=== PATIENT | female | born 1990 | race Hispanic/Latino ===

== ENCOUNTER 2017-12-18 21:52 | Emergency (ER) | payer MEDICAID, OTHER ==
[~2017-12-18 21:52] MED LIST: IBUP-2070 PO; PREN1TAB89 PO
[2017-12-18 22:44] LABS: APPEARANCE,URINE Cloudy (CLEAR); BILIRUBIN,URINE Negative (NEGATIVE); COLOR,URINE Yellow (YELLOW); GLUCOSE, URINE (UA) Negative (NEGATIVE); KETONES,URINE 15 mg/dL (NEGATIVE); LEUKOCYTE ESTERASE ,URINE Small (NEGATIVE); NITRATE,URINE Negative (NEGATIVE); OCCULT BLOOD,URINE Negative (NEGATIVE); PH,URINE 5.5 (5.0-8.0); PROTEIN,URINE Negative (NEGATIVE); UROBILINOGEN,URINE 0.2 mg/dL (0.2-1.0)
[2017-12-18 22:47] LABS: HCG,QUAL RESULT NEGATIVE (NEGATIVE)
[2017-12-18] MEDS ORDERED: HYOSCYAMINE SULFATE 0.125 MG TAB.SUBL SL ONE (22:54)
[2017-12-18] MEDS ORDERED: SODIUM CHLORIDE 0.9% 1000ML 1,000 ML IV ONE (22:54)
[2017-12-18] MEDS ORDERED: ONDANSETRON HCL 4 MG/2 ML VIAL ONE (22:54)
[2017-12-18 22:56] LABS: RBC,URINE None Seen /HPF (0-1)
[2017-12-18 22:57] LABS: BACTERIA,URINE Rare /HPF (None Seen); MUCUS,URINE Few LPF (None Seen); SQUAMOUS EPITHELIAL CELL,UR Many /HPF (0-2)
[2017-12-18 22:58] LABS: BASOPHILS % (AUTO) 0.2 % (0.0-5.0); EOSINOPHILS % (AUTO) 0.5 % (0.0-8.0); HEMATOCRIT 32.1 % (36-48); LYMPHOCYTES % (AUTO) 4.2 % (21.0-51.0); MEAN CORPUSCULAR HGB CONC 31.8 g/dL (32.0-36.0); MEAN CORPUSCULAR VOLUME 66.1 fL (79-99); MONOCYTES % (AUTO) 3.1 % (3.0-13.0); PLATELET COUNT (AUTO) 375 K/uL (130-400); RED BLOOD CELL COUNT(AUTO) 4.85 MIL/uL (4.00-5.50); WHITE BLOOD COUNT (AUTO) 10.6 K/uL (4.8-10.8)
[2017-12-18 23:09] LABS: CREATININE 0.7 mg/dL (0.5-1.5); POTASSIUM 3.9 mmol/L (3.5-5.1)
[2017-12-18 23:14] LABS: BILIRUBIN,TOTAL 0.7 mg/dL (0.2-1.0); TOTAL PROTEIN, SERUM 8.1 g/dL (6.0-8.3)
[2017-12-18] MEDS ORDERED: ACETAMINOPHEN 325 MG TAB ONE (23:38)
== END 2017-12-19 00:32 | disposition home or self-care (01) ==
LOC: EDH 21:52
DX: E86.0 Dehydration (principal); R50.81 Fever presenting with conditions classified elsewhere; Z88.2 Allergy status to sulfonamides; Z72.0 Tobacco use
CPT/HCPCS: 36415; 80053; 81001; 81025; 85025; 96361; 96374; 99284; J2405; J7030

== ENCOUNTER 2019-08-31 19:31 | Emergency (ER) | payer MEDICAID ==
[2019-08-31 20:26] LABS: RAPID GROUP A STREP NEGATIVE (NEGATIVE)
[2019-08-31] MEDS ORDERED: ALBUTEROL SULFATE 0.083% 2.5 MG/3 ML INH IH ONE (20:57)
[2019-08-31] MEDS ORDERED: SODIUM CHLORIDE 0.9% 1000ML 1,000 ML IV ONE (21:00)
== END 2019-08-31 22:07 | disposition home or self-care (01) ==
LOC: EDH 19:31
DX: B34.9 Viral infection, unspecified (principal); Z88.2 Allergy status to sulfonamides
CPT/HCPCS: 87804 ×2; 87880; 94640; 99283; J7030

== ENCOUNTER 2019-11-09 22:24 | Inpatient (IN) | payer MEDICAID ==
[~2019-11-09] VITALS: Ht 165.1 cm; Wt 80.3 kg
[2019-11-09] MEDS ORDERED: LACTATED RINGERS 1000ML 1,000 ML IV PRN (22:27)
[2019-11-09 23:09] LABS: APPEARANCE,URINE Clear (CLEAR); BILIRUBIN,URINE Negative (NEGATIVE); COLOR,URINE Yellow (YELLOW); GLUCOSE, URINE (UA) Negative (NEGATIVE); KETONES,URINE Trace mg/dL (NEGATIVE); LEUKOCYTE ESTERASE ,URINE Small (NEGATIVE); NITRATE,URINE Negative (NEGATIVE); OCCULT BLOOD,URINE Negative (NEGATIVE); PROTEIN,URINE Negative (NEGATIVE)
[2019-11-09 23:11] LABS: HEMATOCRIT 26.5 % (36-48); MEAN CORPUSCULAR HEMOGLOBIN 19.7 pg (27.0-33.0); MEAN CORPUSCULAR HGB CONC 29.8 g/dL (32.0-36.0); MEAN CORPUSCULAR VOLUME 66.1 fL (79-99); PLATELET COUNT (AUTO) 313 K/uL (130-400); RED BLOOD CELL COUNT(AUTO) 4.01 MIL/uL (4.00-5.50); RED CELL DISTRIBUTION WIDTH 19.3 % (11.0-15.5); WHITE BLOOD COUNT (AUTO) 11.3 K/uL (4.8-10.8)
[2019-11-09 23:25] LABS: BACTERIA,URINE Few /HPF (None Seen); MUCUS,URINE Many LPF (None Seen); RBC,URINE None Seen /HPF (0-1); SQUAMOUS EPITHELIAL CELL,UR Moderate /HPF (0-2)
[2019-11-10 07:28] LABS: AMPHET/METH SCREEN,URINE NEGATIVE (NEGATIVE); BARBITURATE SCREEN, URINE NEGATIVE (NEGATIVE); BENZODIAZEPINES SCREEN,URINE NEGATIVE (NEGATIVE); CANNABINOID SCREEN,URINE NEGATIVE (NEGATIVE); COCAINE SCREEN,URINE NEGATIVE (NEGATIVE); OPIATE SCREEN,URINE NEGATIVE (NEGATIVE); PHENCYCLIDINE SCREEN,URINE NEGATIVE (NEGATIVE)
[2019-11-10] MEDS ORDERED: OXYTOCIN 10 USP UNITS/ML 20 UNIT in LACTATED RINGERS 1000ML 1,000 ML IV SCH (09:15)
[2019-11-10] MEDS: OXYTOCIN-LR 20 UNITS/1000 ML 1,000 ML IV SCH ×2 (09:29→21:23)
[2019-11-10] MEDS ORDERED: EPHEDRINE SULFATE 50 MG/ML AMPULE ONE (11:09)
[2019-11-10] MEDS ORDERED: EPHEDRINE SULFATE 50 MG/ML AMPULE IVP PRN (11:15)
[2019-11-10] MEDS ORDERED: LACTATED RINGERS 500 ML 500 ML IV PRN (11:15)
[2019-11-10] MEDS ORDERED: NALOXONE HCL 0.4 MG/1 ML ML IV PRN (11:15)
[2019-11-10] MEDS ORDERED: FENTANYL CITRATE PF 50 MCG/1 ML 2ML VIAL ONE (11:47)
[2019-11-10] MEDS ORDERED: BENZOCAINE/LANOLIN/ALOE VERA 60 ML AEROSOL TP PRN (16:45)
[2019-11-10] MEDS ORDERED: DIPH,PERTUSS(ACELL),TET VAC/PF 0.5 ML VIAL IM PRN (16:45)
[2019-11-10] MEDS ORDERED: WITCH HAZEL 1 PAD TP PRN (16:45)
[2019-11-10] MEDS ORDERED: LANOLIN 30GM OINTMENT TP PRN (16:45)
[2019-11-10] MEDS ORDERED: OXYTOCIN-LR 20 UNITS/1000 ML 1,000 ML IV SCH (16:45)
[2019-11-10] MEDS ORDERED: ACETAMINOPHEN-CODEINE 300/30MG TAB PO PRN (16:45)
[2019-11-10] MEDS ORDERED: ACETAMINOPHEN 325 MG TAB PO PRN (16:45)
[2019-11-10] MEDS ORDERED: MEASLES/MUMPS/RUBELLA VACCINE, LIVE 0.5 ML/VIAL SQ PRN (16:45)
--- NOTE | 2019-11-10 17:00 | NUR ---
PATIENT ORIENTED TO ROOM. RIGHT LOWER EXTREMITY IS HEAVY. PATIENT C/O HEADACHE. FUNDUS IS FIRM, BLEEDING IS SCANT. ADVISED PATIENT TO CALL WHEN NEEDING ASSISTANCE AMBULATING OR WITH ANY NEEDS OR CONCERNS.
[2019-11-10 17:20] VITALS: BP 100/60
[2019-11-10 19:51] VITALS: BP 127/71
[2019-11-10] MEDS: DOCUSATE SODIUM 100 MG CAP PO SCH (20:52)
[2019-11-10 23:29] VITALS: BP 112/65
[2019-11-11 03:20] VITALS: BP 98/57
[2019-11-11] MEDS: IBUPROFEN 600 MG TABLET PO PRN ×2 (03:55→09:19)
[2019-11-11 06:57] LABS: HEMATOCRIT 24.3 % (36-48); MEAN CORPUSCULAR HEMOGLOBIN 19.5 pg (27.0-33.0); MEAN CORPUSCULAR HGB CONC 29.2 g/dL (32.0-36.0); MEAN CORPUSCULAR VOLUME 66.8 fL (79-99); RED BLOOD CELL COUNT(AUTO) 3.64 MIL/uL (4.00-5.50); RED CELL DISTRIBUTION WIDTH 19.3 % (11.0-15.5); WHITE BLOOD COUNT (AUTO) 11.2 K/uL (4.8-10.8)
[2019-11-11 07:15] VITALS: BP 97/58
[2019-11-11 09:10] LABS: HEPATITIS Bs ANTIGEN SCREEN P Negative (Negative)
--- NOTE | 2019-11-11 09:15 | NUR ---
DR. GOLBDERG ROUNDED AND DISCHARGED PATIENT TO HOME. PATIENT STABLE AND INDICATED WANTING TO GO HOME. ORDER GIVEN FOR DISCHARGE.
[2019-11-11] MEDS: DOCUSATE SODIUM 100 MG CAP PO SCH (09:18)
[2019-11-11 11:15] VITALS: BP 96/52
--- NOTE | 2019-11-11 13:00 | NUR ---
SALINE LOCK REMOVED FOR DISCHARGE. IV SITE WNL.
--- NOTE | 2019-11-11 13:30 | NUR ---
PATIENT WAS GIVEN DISCHARGE INSTRUCTION AND INFO ON COVID 19. DISCHARGE INSTRUCTIONS REVIEWED WITH PATIENT AND VERBALIZED UNDERSTANDING INSTRUCTIONS GIVEN. PATIENT INSTRUCTED TO TAKE MOTRIN OVER THE COUNTER NEEDED FOR PAIN.
[2019-11-11 16:19] VITALS: BP 110/74
--- NOTE | 2019-11-11 16:25 | NUR ---
PATIENT WAS TAKEN VIA W/C CARRYING BABY IN ARMS AND WERE DISCHARGED TO SIGNIFICANT OTHER. PATIENT IS STABLE AND DENIES PAIN.
== END 2019-11-11 16:25 | disposition home or self-care (01) | DRG 560 ==
LOC: LDH 22:24 → WSH 11-10 17:00
PROVIDERS: ADMIT Obstetrics & Gynecology; ATTEND Obstetrics & Gynecology
PROC: 10E0XZZ Delivery of Products of Conception, External Approach (ICD-10-PCS; principal; 2019-11-11)
PROC: 0HQ9XZZ Repair Perineum Skin, External Approach (ICD-10-PCS; 2019-11-11)
PROC: 3E0R3BZ Introduction of Anesthetic Agent into Spinal Canal, Percutaneous Approach (ICD-10-PCS; 2019-11-11)
PROC: 00HU33Z Insertion of Infusion Device into Spinal Canal, Percutaneous Approach (ICD-10-PCS; 2019-11-11)
PROC: 3E0234Z Introduction of Serum, Toxoid and Vaccine into Muscle, Percutaneous Approach (ICD-10-PCS; 2019-11-11)
PROC: 3E0134Z Introduction of Serum, Toxoid and Vaccine into Subcutaneous Tissue, Percutaneous Approach (ICD-10-PCS; 2019-11-11)
PROC: 10907ZC Drainage of Amniotic Fluid, Therapeutic from Products of Conception, Via Natural or Artificial Opening (ICD-10-PCS; 2019-11-11)
PROC: 3E033VJ Introduction of Other Hormone into Peripheral Vein, Percutaneous Approach (ICD-10-PCS; 2019-11-11)
DX: O99.02 Anemia complicating childbirth (principal); Z37.0 Single live birth; D64.9 Anemia, unspecified; O70.0 First degree perineal laceration during delivery; Z23 Encounter for immunization; Z3A.39 39 weeks gestation of pregnancy
CPT/HCPCS: 36415; 80305; 81001; 85027; 86592; 86850; 86900; 86901; 87340; 90715; A4314; A4606; G0378; J2590; J3010; J3490; J7120

== ENCOUNTER 2025-04-22 08:18 | Emergency (ER) | payer SELFPAY ==
[~2025-04-22] VITALS: Ht 165.1 cm; Wt 81.6 kg
[~2025-04-22 08:18] MED LIST changes: +IBUP-1492 PO; -IBUP-2070 PO
--- NOTE | 2025-04-22 08:40 | ERN ---
General Chief Complaint: Dizzy/Light Headed Stated Complaint: DIZZY Time Seen by MD: 08:22 Source: patient History of Present Illness Initial Comments PATIENT IS A 35-YEAR-OLD FEMALE COMING IN COMPLAINING OF DIZZINESS. PER PATIENT SHE IS WORRIED BECAUSE SHE HAS BEEN HAVING HEAVY MENSTRUATIONS ON TWO MONTHS AGO SHE HAD A BLOOD TRANSFUSION SECONDARY TO ANEMIA. PATIENT IS HERE FOR FURTHER EVALUATION. LONG WITH THIS PATIENT STATES THAT SHE HAD BILATERAL TUBAL LIGATION. Allergies: Coded Allergies: sulfacetamide (Unverified Allergy, Unknown, 07/13/16) HIVES A CHILD sulfamethoxazole (Unverified Allergy, Unknown, 04/22/25) Home Meds Reported Medications Ibuprofen (Ibuprofen) 600 Mg Tablet, 600 MG PO Q6H PRN for PAIN, #60 TAB 07/09/16 Vit W-Ca,Fe,FA(<1 mg) ( Vitamins) 1 Each Tablet, 1 EACH PO DAILYDINNER, TAB 07/08/16 Past Medical History Past Medical History: Anemia Past Surgical History: Female( History) LMP: Apr 11, 2025 : 6 Para: 6 Aborts: 0 ROS Dictation CONSTITUTIONAL: NO CHILLS, NO FEVER, NO WEAKNESS, NO DIAPHORESIS, NO MALAISE. HEAD/FACE: NO SIGNS OF TRAUMA. EENT: NO EYE PAIN, NO BLURRED VISION, NO TEARING, NO DOUBLE VISION, NO EAR PAIN, NO EAR DISCHARGE, NO NOSE PAIN, NO NASAL CONGESTION, NO THROAT PAIN, NO THROAT SWELLING, NO MOUTH PAIN. RESPIRATORY: NO COUGH, NO ORTHOPNEA, NO SOB, NO STRIDOR, NO WHEEZING. CARDIOVASCULAR: NO CHEST PAIN, NO EDEMA, NO PALPITATIONS, NO SYNCOPE. GASTROINTESTINAL/ABDOMINAL: NO ABDOMINAL PAIN, NO CONSTIPATION, NO DIARRHEA, NO NAUSEA, NO VOMITING. GENITOURINARY: NO ABNORMAL DISCHARGE, NO DYSURIA, NO FREQUENT URINATION, NO HEMATURIA. NO COMPLAINTS OF PAIN IN THE GENITALS. MUSCULOSKELETAL: NO BACK PAIN, NO GOUT, NO JOINT PAIN, NO JOINT SWELLING, NO MUSCLE PAIN, NO MUSCLE STIFFNESS, NO NECK PAIN. INTEGUMENTARY: NO CHANGE IN COLOR, NO CHANGE IN HAIR/NAILS, NO DRYNESS, NO LESION, NO LUMPS, NO RASH. NEUROLOGICAL/PSYCH: NO ANXIETY, NOT DEPRESSED, NO EMOTIONAL PROBLEM, NO HEADACHE, NO NUMBNESS, NO PRE-EXISTING DEFICIT, NO HISTORY OF SEIZURES, NO TREMORS, NO WEAKNESS. HEMATOLOGIC/LYMPHATIC: NOT ANEMIC, NO HISTORY OF BLOOD CLOTS, NO APPARENT BLEE DING, NO BRUISING, GLANDS NOT SWOLLEN. ALL SYSTEMS NEGATIVE, EXCEPT NOTED. Physical Exam Physical Exam Dictation VITAL SIGNS: REVIEWED. GENERAL APPEARANCE: ALERT, ORIENTED X3, NO ACUTE DISTRESS, OBESE. HEAD AND FACE: NON-TRAUMATIC. EYES: PERRL, PINK CONJUNCTIVAS, EYELID NO TRAUMA, ANTERIOR CHAMBER CLEAR. EARS: PINNAS INTACT AND NO SIGNS OF TRAUMA OR ERYTHEMA. EAR CANALS CLEAR AND NO DISCHARGE. TMS NO ERYTHEMA. NOSE: NO DISCHARGE, NO BLEEDING. OROPHARYNX: MOUTH NORMAL, TEETH NO CARIES, TONGUE PINK. PHARYNX CLEAR, NO ERYTHEMA. TONSILS NO EXUDATES, NO ABSCESSES NOTED. MUCOUS MEMBRANE MOIST. NECK: SUPPLE, NON-TENDER, NO THYROMEGALY, NO MASSES, NO JVD, NO BRUITS. BREAST: DEFERRED. CHEST: NO TENDERNESS, NO CREPITUS, NO PARADOXICAL MOVEMENT, NO RETRACTIONS. LUNGS: CLEAR, WELL-VENTILATED, SYMMETRIC, NO RALES, NO WHEEZING, NO RHONCHI, NO STRIDOR, GOOD BREATH SOUNDS BILATERALLY. HEART: REGULAR RATE, REGULAR RHYTHM, NO MURMUR, NO GALLOPS. VASCULAR: NO PERIPHERAL EDEMA. ABDOMEN: SOFT, POSITIVE BOWEL SOUNDS, NONDISTENDED, NO GUARDING, NONTENDER, NO REBOUND, NO MASSES NO HEPATOMEGALY, NO SPLENOMEGALY, NO VENTURA'S SIGN, NO HERNIAS. RECTAL: DEFERRED. GENITAL: DEFERRED. NEUROLOGICAL: NORMAL SPEECH, GROSS MOTOR FUNCTION INTACT, GROSS SENSORY FUNCTION INTACT. MUSCULOSKELETAL: NECK NONTENDER, FULL RANGE OF MOTION, BACK NONTENDER, FULL RANGE OF MOTION. EXTREMITIES: NONTENDER, FULL RANGE OF MOTION. SKIN: COLOR PINK, DRY, NO TURGOR, NO RASH, NO LACERATIONS, NO ABRASIONS, NO CONTUSIONS. LYMPHATICS: DEFERRED. Results Laboratory and Microbiology Lab and Micro Result Laboratory Tests Test 04/22/25 08:59 White Blood Count 6.5 K/uL (4.8-10.8) Red Blood Count 2.61 MIL/uL (4.00-5.50) L Hemoglobin 5.5 g/dL (12.0-16.0) *L Hematocrit 18.2 % (36-48) *L Mean Corpuscular Volume 69.7 fL (79-99) L Mean Corpuscular Hemoglobin 21.1 pg (27.0-33.0) L Mean Corpuscular Hemoglobin Concent 30.2 g/dL (32.0-36.0) L Red Cell Distribution Width 18.0 % (11.0-15.5) H Platelet Count 387 K/uL (130-400) Mean Platelet Volume 8.9 fL (7.5-10.5) Immature Granulocyte % (Auto) 0.2 % (0-1) Neutrophils (%) (Auto) 73.0 % (40.0-77.0) Lymphocytes (%) (Auto) 16.4 % (21.0-51.0) L Monocytes (%) (Auto) 7.0 % (3.0-13.0) Eosinophils (%) (Auto) 2.9 % (0.0-8.0) Basophils (%) (Auto) 0.5 % (0.0-5.0) Neutrophils # (Auto) 4.7 K/uL (1.8-7.7) Lymphocytes # (Auto) 1.1 K/uL (1.0-4.8) Monocytes # (Auto) 0.5 K/uL (0.1-1.0) Eosinophils # (Auto) 0.19 K/uL (0.00-0.70) Basophils # (Auto) 0.03 K/uL (0.00-0.20) Absolute Immature Granulocyte (auto 0.01 K/uL (0-1) Nucleated Red Blood Cells 0.0 % (0.0-0.19) Red Blood Cell Morphology See comments Sodium Level 141 mmol/L (136-145) Potassium Level 3.6 mmol/L (3.5-5.1) Chloride Level 106 mmol/L (101-111) Carbon Dioxide Level 27 mmol/L (21-32) Blood Urea Nitrogen 9 mg/dL (7-18) Creatinine 0.6 mg/dL (0.5-1.0) Glomerular Filtration Rate Calc 121 mL/min (>90) Random Glucose 114 mg/dL (70-105) H Total Calcium 7.7 mg/dL (8.5-10.1) L Labs Reviewed?: Yes EKG/XRAY/US/CT/MRI EKG Comment 04/22/2025 TIME 9:25 A.M. VENTRICULAR RATE 83 SINUS RHYTHM PA [address] WAVE ELEVATION OR DEPRESSION MDM MDM: DIFFERENTIAL DIAGNOSIS: DYSFUNCTIONAL UTERINE BLEED, SEVERE ANEMIA, RATIONALE: TESTS CONSIDERED AND ORDERED SECONDARY TO SHARED DECISION MAKING INCLUDE: PREVIOUS OUTSIDE RECORDS REVIEWED: OLD ER VISITS. RISK OF COMPLICATION AND/OR MORBIDITY OR MORTALITY OF PATIENT MANAGEMENT: NONE MEDICATIONS-PER MEDICATION RECONCILIATION NEED FOR HOSPITALIZATION: PATIENT DOES MEET CRITERIA FOR HOSPITALIZATION. NEED FOR EMERGENCY MAJOR/MINOR SURGERY: NO THERE ARE NO SOCIAL CONCERNS WITH THIS PATIENT. PRESCRIPTION DRUG MANAGEMENT PRESCRIPTIONS WILL INCLUDE SYMPTOMATIC CARE PATIENT'S PRIOR EXTERNAL MEDICAL RECORDS FROM OTHER ER VISITS WERE REVIEWED BY ME INDICATED. PRIOR TESTING AND RESULTS FROM PREVIOUS VISITS WERE REVIEWED. PRIOR TESTS WERE TAKEN INTO ACCOUNT WITH MEDICAL DECISION MAKING AND RESOURCE UTILIZATION, INDEPENDENT HISTORIAN/HISTORIANS WERE USED TO OBTAIN COMPLETE MEDICAL HISTORY. I INDEPENDENTLY INTERPRETED THE TEST THAT WERE PERFORMED, RESULTS WERE REVIEWED BY ME AND CONSIDERED FINDINGS ON RADIOLOGY IF ORDERED. MEDICAL MANAGEMENT AND EXAMINATION INTERPRETATION DISCUSSIONS WERE HAD BY ME WITH OTHER QUALIFIED HEALTHCARE PROFESSIONALS INDICATED FOR THE PATIENT'S CARE. HE HAS BEEN SPOKE TO [facility] OBGYN DR. HUNTER ACCEPTS PATIENT TO BE TRANSFERRED. ED Course Orders Procedure Category Date Status Time Cbc With Differential LAB 04/22/25 Complete 08:24 Basic Metabolic Panel LAB 04/22/25 Complete 08:24 ,Urine Test LAB 04/22/25 Logged 08:24 Urinalysis LAB 04/22/25 Logged W/Microscopic 08:24 12 Lead Ekg Tracing- EKG 04/22/25 Logged Technical 09:09 Type And Screen BBK 04/22/25 In Process 09:09 Rbc-Active Bleeding BBK 04/22/25 In Process 10:14 Vital Signs Date Time Temp Pulse Resp B/P (MAP) Pulse Ox O2 Delivery O2 Flow Rate FiO2 04/22/25 10:31 86 18 112/69 100 Room Air* 0 21 04/22/25 08:21 97.9 86 18 116/63 97 Room Air 0 Critical Care Note Comments CRITICAL CARE PROCEDURE NOTE AUTHORIZED AND PERFORMED BY: ME TOTAL CRITICAL CARE TIME: APPROXIMATELY 36 MINUTES DUE TO A HIGH PROBABILITY OF CLINICALLY SIGNIFICANT, LIFE THREATENING DETERIORATION, THE PATIENT REQUIRED MY HIGHEST LEVEL OF PREPAREDNESS TO INTERVENE EMERGENTLY AND I PERSONALLY SPENT THIS CRITICAL CARE TIME DIRECTLY AND PERSONALLY MANAGING THE PATIENT. THIS CRITICAL CARE TIME INCLUDED OBTAINING A HISTORY; EXAMINING THE PATIENT; PULSE OXIMETRY; ORDERING AND REVIEW OF STUDIES; ARRANGING URGENT TREATMENT WITH DEVELOPMENT OF A MANAGEMENT PLAN; EVALUATION OF PATIENT'S RESPONSE TO TREATMENT; FREQUENT REASSESSMENT; AND, DISCUSSIONS WITH OTHER PROVIDERS. THIS CRITICAL CARE TIME WAS PERFORMED TO ASSESS AND MANAGE THE HIGH PROBABILITY OF IMMINENT, LIFE-THREATENING DETERIORATION THAT COULD RESULT IN MULTI-ORGAN FAILURE. IT WAS EXCLUSIVE OF SEPARATELY BILLABLE PROCEDURES AND TREATING OTHER PATIENTS AND TEACHING TIME. PLEASE SEE MDM SECTION AND THE REST OF THE NOTE FOR FURTHER INFORMATION ON PATIENT ASSESSMENT AND TREATMENT. DX & DISP Disposition: Transfer Decision to Admit Time: 10:43 Departure Impression: Primary Impression: Dysfunctional uterine bleeding Additional Impression: Severe anemia Condition: Stable Referrals: SELF,REFERRAL (PCP) TI FALK MD Apr 22, 2025 08:40
[2025-04-22 09:06] LABS: IMMATURE GRANULOCYTE ABSOLUTE 0.01 K/uL (0-1); NUCLEATED RED BLOOD CELLS 0.0 % (0.0-0.19); PLATELET COUNT (AUTO) 387 K/uL (130-400); RED BLOOD CELL COUNT(AUTO) 2.61 MIL/uL (4.00-5.50); RED CELL DISTRIBUTION WIDTH 18.0 % (11.0-15.5); WHITE BLOOD COUNT (AUTO) 6.5 K/uL (4.8-10.8)
[2025-04-22 09:13] LABS: CREATININE 0.6 mg/dL (0.5-1.0); GLOMERULAR FILTR. RATE CALC 121.0 mL/min (>90); GLUCOSE,RANDOM 114.0 mg/dL (70-105); SODIUM SERUM 141.0 mmol/L (136-145); UREA NITROGEN, BLOOD 9.0 mg/dL (7-18)
--- NOTE | 2025-04-22 09:40 | NUR ---
TRANSFER REQUEST FOR [employer] [employer] OPERATOR SERVICE PER DR FALK. BECCA DAY
--- NOTE | 2025-04-22 10:17 | NUR ---
TRANSFER [place] PLACE TO [facility] [phone] SPOKE WITH [facility]MER INTAKE NURSE INFORMATION PROVIDED AND WILL CALL BACK. BECCA DAY
--- NOTE | 2025-04-22 10:40 | NUR ---
BLOOD CONSENT: CONSENT OBTAINED FOR BLOOD TRANSFUSION
--- NOTE | 2025-04-22 10:55 | NUR ---
TRANSFER CALL BACK BY INTAKE NURSE WITH ACCEPTANCE UNDER DR HUNTER TO ROOM 3308 AND PRIMARY NURSE TO CALL REPORT AND EMS WHEN READY. BECCA DAY
--- NOTE | 2025-04-22 11:28 | NUR ---
BLOOD TRANSFUSION STARTED,SEE PAPER DOCUMENTATION
[2025-04-22 12:00] LABS: HCG,QUALITATIVE URINE NEGATIVE (NEGATIVE)
[2025-04-22 12:08] LABS: APPEARANCE,URINE HAZY (CLEAR); GLUCOSE, URINE (UA) NEGATIVE (NEGATIVE); LEUKOCYTE ESTERASE ,URINE 75 Leu/uL (NEGATIVE); NITRATE,URINE NEGATIVE (NEGATIVE); OCCULT BLOOD,URINE LARGE (NEGATIVE); SQUAMOUS EPITHELIAL CELL,UR FEW /HPF (0-2)
--- NOTE | 2025-04-22 12:10 | NUR ---
TRANSFER NOTE: [facility]ATCH CALLED FOR URGENT PT TRANSFER TO [facility] [place] ROOM [id number]
[2025-04-22 12:15] VITALS: BP 111/71; PULSE 98; RESP 18; TEMP 98.7; O2SAT 100
--- NOTE | 2025-04-22 12:19 | NUR ---
[place] [facility] [place] GIVE REPORT SPOKE TO RELIABILITY TECHNICIANSSHARIFA RN WILL BE NURSE. PENDING CALL BACK.
--- NOTE | 2025-04-22 12:28 | NUR ---
REPORT GIVEN SHARIFA RN [place] [facility] [place] STABLE VITALS WNL NO C/O PAIN NOW, PT EATING IN ROOM SPOUSE BROUGHT OUTSIDE FOOD. PT IV TO L A/C RUNNING 1 UNIT PRBC NOW. EMS CALLED PENDING FORM TAMPER OPERATOR.
--- NOTE | 2025-04-22 12:40 | NUR ---
EMS ARRIVED NOW 1240, PT TRANSFERRED VIA STRETCHER WITH PERSONAL BELONGINGS. PT AAOX4 NO C/O PAIN NOW. DICHARGED PACKET GIVEN TO EMS TECH.
--- NOTE | 2025-04-22 12:49 | NUR ---
BLOOD PRODUCT: [facility] 706 HAVE TAKEN WITH THEM A PUMP THAT IS CURRENTLY TRANSFUSING BLOOD PRODUCTS. LAST VITALS WERE TAKEN. THE [facility] BOOM PUMP OPERATOR CO-SIGNED THE BLOOD TRANSFUSION RECORD. VSS. NO S/S OF ALLERGIC RX AT THIS TIME. BLOOD BANK NOTIFIED AND INSTRUCTED ME TO DOCUMENT A NOTE AND LAST VITAL SIGNS SINCE BLOOD COMLETION WOULD NOT HAPPEN HERE.
--- NOTE | 2025-04-22 12:50 | EKG ---
[facility] Test Date: 2025-04-22 Test Time: 09:25:17 Pat Name: FRANCESCO MAYS Department: [facility] Room: Gender: F Roasterman: 1244 : 1990 Requested By: TI FALK Order Number: [id number] Reading MD: Paulina Cee Measurements Intervals [place] Rate: 83 P: 73 MO: 137 QRS: 24 QRSD: 109 T: 45 QT: 382 QTc: 451 Interpretive Statements Sinus rhythm No previous ECG available for comparison Electronically Signed On 04-22-2025 16:22:25 CDT by Paulina Cee Please click the below link to view image of tracing.
== END 2025-04-22 10:26 | disposition short-term general hospital (02) ==
LOC: EDH 08:18
DX: N93.8 Other specified abnormal uterine and vaginal bleeding (principal); D64.9 Anemia, unspecified; R42 Dizziness and giddiness; Z88.2 Allergy status to sulfonamides; Z98.51 Tubal ligation status
CPT/HCPCS: 99291; 36430; 80048; 85025; 86850; 86900; 86901; 86923; 87086 ×2; 87186; 81001; 81025; 36415; 93005; P9016